=== PATIENT | female | born 1955 | race Caucasian/White ===

== ENCOUNTER 2022-08-08 11:47 | Emergency (ER) | payer BC ==
[2022-08-08] MEDS ORDERED: Lorazepam 1 MG TAB ONE (12:38)
[2022-08-08] MEDS ORDERED: Lidocaine 2% PF 5 ML VIAL ONE (12:39)
[2022-08-08] MEDS ORDERED: Lidocaine 1% w/Epinephrine 1:100K 20 ML VIAL ONE (12:42)
== END 2022-08-08 13:40 | disposition home or self-care (01) ==
LOC: ERS 11:47
DX: L02.415 Cutaneous abscess of right lower limb (principal)
CPT/HCPCS: 10060; J2001

== ENCOUNTER 2023-01-11 14:30 | Emergency (ER) | payer BC ==
[~2023-01-11 14:30] MED LIST: Iopamidol-370 76% 500 ML MDV (1 ML CHARGE) ONE
[2023-01-11 15:39] LABS: #Lymphocytes 1.8 thou/uL (1.20-3.40); #Monocytes 1.3 thou/uL (0.11-0.59); #Neutrophils 11.6 thou/uL (1.40-6.50); %Basophils 0.2 % (0.0-1.0); %Eosinophils 0.3 % (0.0-10.0); %Monocytes 8.9 % (0.0-10.0); %Neutrophils 78.7 % (42.0-75.0); Hemoglobin 14.4 g/dL (12.0-16.0); Mean Corpuscular HGB CONC 32.4 g/dL (32.0-36.0); Mean Corpuscular Hemoglobin 30.7 pg (27.0-31.0); Mean Corpuscular Volume 94.5 fl (78.0-98.0); Mean Platelet Volume 8.4 fL (7.4-10.4); Platelet Count 225 10x3/uL (130-400); RBC Distribution Width 12.1 % (11.5-14.5); Red Blood Cell (RBC) Count 4.69 mill/uL (4.20-5.40); White Blood Cell (WBC) Count 14.7 10x3/uL (4.8-10.8)
[2023-01-11 15:53] LABS: Bilirubin, Total 0.2 mg/dL (0.2-1.2); Calcium 9.6 mg/dL (7.8-10.44); Chloride 105 mmol/L (98-107); Potassium 4.3 mmol/L (3.5-5.1); Sodium 136 mmol/L (136-145)
[2023-01-11 15:56] LABS: Bilirubin Negative (Negative); Blood, Urine Negative (Negative); Clarity Clear (Clear); Glucose, Urine (Dipstick) Normal (Negative); Ketone, Urine Negative (Negative); Leukocyte 75 Leu/uL (Negative); Nitrite Negative (Negative); Protein, Urine (Dipstick) Negative (Neg-Trace); RBC/HPF 0-3 HPF (0-3); Specific Gravity, Urine 1.006 (1.002-1.036); Urobilinogen Normal mg/dL (Less than 2); WBC/HPF 0-3 HPF (0-3)
[2023-01-11 16:01] LABS: Bacteria/HPF 1+ HPF (None Seen)
[2023-01-11 16:05] LABS: ALT (SGPT) 12 U/L (8-55); AST (SGOT) 19 U/L (5-34); Albumin 4.1 g/dL (3.4-4.8); Alkaline Phosphatase 125 U/L (40-110); BUN (Urea Nitrogen) 8 mg/dL (9.8-20.1); Calc. Creatinine Clearance 0 mL/min (70-130); Carbon Dioxide 18 mmol/L (23-31); Estimated GFR 92; Globulin 3.7 g/dL (2.4-3.5); Glucose 90 mg/dL (80-115); Lipase 17 U/L (8-78); Protein, Total 7.8 g/dL (5.8-8.1)
[2023-01-11 16:39] LABS: Anion Gap 17 mmol/L (10-20)
[2023-01-11] MEDS ORDERED: Ondansetron PF 4 MG/2 ML Vial ONE (18:31)
[2023-01-11] MEDS ORDERED: Morphine 4 MG/ML VIAL ONE (18:31)
== END 2023-01-11 22:05 | disposition home or self-care (01) ==
LOC: ERS 14:30
DX: K57.92 Diverticulitis of intestine, part unspecified, without perforation or abscess without bleeding (principal); K80.20 Calculus of gallbladder without cholecystitis without obstruction; D72.829 Elevated white blood cell count, unspecified
CPT/HCPCS: 36415; 74177; 80053; 81003; 81015; 83690; 85025; 96374; 96375; J2270; J2405; Q9967

== ENCOUNTER 2023-11-10 07:03 | Day surgery (SDC) | payer MEDICARE ==
[2023-11-05 13:03] VITALS: BMI 31.3
[2023-11-10] MEDS ORDERED: Indocyanine Green 25 MG/10 ML VIAL ONE (08:10)
[2023-11-10] MEDS ORDERED: EPINEPHrine 1 MG/ML VIAL ONE (08:10)
[2023-11-10] MEDS ORDERED: Bupivacaine 0.25% HCL 30 ML VIAL ONE (08:11)
[2023-11-10] MEDS ORDERED: fentaNYL PF 100 MCG/2 ML SYRINGE ONE ×2 (08:56→10:00)
[2023-11-10] MEDS ORDERED: PROPOFOL 0 ML ONE (08:56)
[2023-11-10] MEDS ORDERED: CEFAZOLIN 2 GM VIAL ONE (09:00)
[2023-11-10] MEDS ORDERED: Sodium Chloride 0.9% 100 ML ONE (09:01)
[2023-11-10] MEDS ORDERED: Lidocaine 1% PF 5 ML VIAL ONE (09:16)
[2023-11-10] MEDS ORDERED: Esmolol 100 MG/10 ML VIAL ONE (09:16)
[2023-11-10] MEDS ORDERED: Rocuronium Bromide 10 MG/ML (10ML VIAL) ONE (09:16)
[2023-11-10] MEDS ORDERED: Dexamethasone 4 mg/ml Vial ONE (09:31)
[2023-11-10] MEDS ORDERED: ePHEDrine Sulfate 50 MG/10 ML VIAL ONE (09:31)
[2023-11-10] MEDS ORDERED: Ondansetron PF 4 MG/2 ML Vial ONE (09:54)
[2023-11-10] MEDS ORDERED: Ketorolac Tromethamine 30 MG (1 mL) VIAL ONE (09:54)
[2023-11-10] MEDS ORDERED: Glycopyrrolate 0.2 MG/ML 5 ML SYRINGE ONE (10:00)
[2023-11-10] MEDS ORDERED: NEOSTIGMINE 3 MG/3 ML SYR 3 MG/3 ML SYRINGE ONE (10:00)
[2023-11-10] MEDS ORDERED: PROPOFOL 20 ML ONE (10:01)
[2023-11-10] MEDS ORDERED: fentaNYL 50 mcg/mL 1 mL Vial ONE ×2 (10:32→10:55)
[2023-11-10] MEDS ORDERED: HYDROcodone/Acetaminophen 5/325 mg Tablet ONE (12:31)
== END 2023-11-10 13:55 | disposition home or self-care (01) ==
LOC: SDC 07:03
PROVIDERS: ATTEND Surgery
PROC: 0FT44ZZ Resection of Gallbladder, Percutaneous Endoscopic Approach (ICD-10-PCS; principal; 2023-11-10)
DX: K80.10 Calculus of gallbladder with chronic cholecystitis without obstruction (principal); K57.92 Diverticulitis of intestine, part unspecified, without perforation or abscess without bleeding; M19.90 Unspecified osteoarthritis, unspecified site; J45.909 Unspecified asthma, uncomplicated; Z79.899 Other long term (current) drug therapy; Z98.84 Bariatric surgery status; Z98.890 Other specified postprocedural states; Z88.1 Allergy status to other antibiotic agents; Z88.5 Allergy status to narcotic agent
CPT/HCPCS: 47562; 71045; J0171; J3010; 88304; J0665; J1100; J1885; J2405; J2704; J3490